=== PATIENT | female | born 1950 | race Asian ===

== ENCOUNTER 2017-09-27 09:09 | Day surgery (SDC) | payer MEDICARE, OTHER ==
[2017-09-27] MEDS ORDERED: LACTATED RINGERS 1,000 ML IV ONE (09:24)
[2017-09-27] MEDS ORDERED: MIDAZOLAM 2 MG/2 ML VIAL IVP ONE (10:33)
[2017-09-27] MEDS ORDERED: fentaNYL 100 MCG/2 ML VIAL IVP ONE (10:33)
[2017-09-27 11:39] VITALS: BP 142/80
== END 2017-09-27 09:10 | disposition home or self-care (01) ==
LOC: SDS 09:09
PROVIDERS: ATTEND Internal Medicine
PROC: 0DBH8ZX Excision of Cecum, Via Natural or Artificial Opening Endoscopic, Diagnostic (ICD-10-PCS; principal; 2017-09-27 10:30)
DX: Z12.11 Encounter for screening for malignant neoplasm of colon (principal); K63.5 Polyp of colon; K64.1 Second degree hemorrhoids
CPT/HCPCS: 45380; J7120; 88305